=== PATIENT | male | born 2000 | race Caucasian/White ===

== ENCOUNTER → 2018-01-28 | Outpatient (CLI) | payer BC, OTHER ==
[~2018-01-28] MED LIST: ETHO250C PO
== END | disposition home or self-care (01) ==
LOC: CARD 12:31
PROVIDERS: ATTEND Psychiatry & Neurology Neurology with Special Qualifications in Child Neurology
DX: G40.309 Generalized idiopathic epilepsy and epileptic syndromes, not intractable, without status epilepticus (principal)
CPT/HCPCS: 95819